=== PATIENT | female | born 1990 | race Caucasian/White ===

== ENCOUNTER 2017-08-21 06:19 | Emergency (ER) | payer OTHER ==
[~2017-08-21] VITALS: Ht 154.9 cm; Wt 49.9 kg
--- OUTSIDE RECORDS SUMMARY | 2017-08-21 06:22 | XMS REPORT | Clinical Summary ---
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 Disp. Refills Start End Date Status Date QVAR 40 mcg/actuation 06/12/19 Active inhaler 01 SEPTEMBERL FE 1.5/30, 28, 1.5 07/06/19 Active mg-30 mcg (21)/75 mg (7) 17 tablet fluticasone (FLONASE) 50 2 sprays by Each Nare Active mcg/actuation nasal spray route daily. naproxen (NAPROSYN) 500 Take 1 tablet (500 mg 20 tablet 0 07/06/19 07/06/19 MG tabletIndications: total) by mouth 2 (two) 17 18 Neck strain, initial times a day with meals. encounter Active Problems Not on file Family History Medical History Relation Name Comments No Known Problems Father No Known Problems Mother Relation Name Status Comments Father Alive Mother Alive Social History Tobacco Use Types Packs/Day Years Used Date Never Smoker Alcohol Use Drinks/Week oz/Week Comments Yes 2 Glasses of 1.2 wine Sex Assigned at Date Recorded Not on file Last Filed Vital Signs Not on file Plan of Treatment Health Maintenance Due Date Last Done Comments CERVICAL CANCER SCREENING 2009 INFLUENZA VACCINE 10/16/2017 Results Not on fileafter 08/20/2016 Insurance Payer Benefit Subscriber ID Type Phone Address Plan / Group CIGNA CIGNA OPEN xxxxxxxxxxx HMO ACCESS/NET WORK
[2017-08-21 07:54] VITALS: BP 129/75
[2017-08-21] MEDS ORDERED: LORAZEPAM 1 MG TAB PO ONE (08:00)
== END 2017-08-21 08:16 | disposition home or self-care (01) ==
LOC: FSED 06:19
DX: R00.2 Palpitations (principal); R07.89 Other chest pain; J45.909 Unspecified asthma, uncomplicated
CPT/HCPCS: 71046; 80048; 80053; 81003; 81025; 85025; 93005; 99284